=== PATIENT | male | born 1965 | race Caucasian/White ===

== ENCOUNTER 2016-12-05 06:48 | Day surgery (SDC) | payer OTHER ==
[~2016-12-05] VITALS: Ht 180.3 cm; Wt 90.6 kg
[~2016-12-05 06:48] MED LIST: IBUPROFEN200 M2 PO; MELATONIN3 M4 PO; MULTIVITAMINS1 EAC6 PO
== END 2016-12-05 12:35 ==
LOC: SHSB 06:48 → SRG 06:48 → ORW 09:22 → SHSB 11:05 → SRG 12:35
PROC: 0YU64JZ Supplement Left Inguinal Region with Synthetic Substitute, Percutaneous Endoscopic Approach (ICD-10-PCS; principal; 2016-12-05)
DX: K40.90 Unilateral inguinal hernia, without obstruction or gangrene, not specified as recurrent (principal); E66.9 Obesity, unspecified; Z68.27 Body mass index [BMI] 27.0-27.9, adult; Z79.899 Other long term (current) drug therapy
CPT/HCPCS: C1781; J0690